=== PATIENT | male | born 1970 | race Caucasian/White ===

== ENCOUNTER 2022-11-26 22:36 | Emergency (ER) | payer SELFPAY ==
[~2022-11-26] VITALS: Ht 180.3 cm; Wt 90.7 kg
[~2022-11-26 22:36] MED LIST: HYDROCODONE BIT1 T11 PO; Orphenadrine C100 MG PO; PROTONIX40 MG PO; VICODIN 5/500 505 MG PO
[2022-11-26 23:19] LABS: BASO # 0.1 10*3/uL (0.0-0.1); BASO % 0.3 % (0.0-1.0); EOS % 0.1 % (1.0-4.0); HEMATOCRIT 49.8 % (42.0-52.0); LYMPH # 1.5 10*3/uL (1.3-4.4); LYMPH % 7.6 % (27.0-41.0); MEAN CELL VOLUME 84.3 fl (80.0-94.0); MEAN CORPUSCULAR HGB 28.4 pg (27.0-31.0); MEAN CORPUSCULAR HGB CONC 33.7 g/dl (33.0-37.0); MEAN PLATELET VOLUME 10.1 fl (9.6-12.3); NEUT # 16.6 10*3/uL (2.3-7.9); NEUT % 86.6 % (47.0-73.0); PLATELET COUNT AUTOMATED 294 10*3/uL (130-400); RED BLOOD COUNT 5.91 10*6/uL (4.50-5.90); RED CELL DISTRI WIDTH 13.2 % (0-14.5); WHITE BLOOD COUNT 19.2 10*3/uL (4.8-10.8)
[2022-11-26 23:31] LABS: ACT PARTIAL THROMBO TIME 32.5 SECONDS (20.0-32.1)
[2022-11-26 23:45] LABS: ALKALINE PHOSPHATASE 104 U/L (46-116); BUN 10 mg/dl (9-23); CHLORIDE 106 mmol/L (98-107); LIPASE 33 U/L (12-53); POTASSIUM 4.1 mmol/L (3.4-5.1); SGPT/ALT 36 U/L (10-49)
[2022-11-27 01:29] LABS: BILIRUBIN Negative (Negative); BLOOD 3+ (Negative); CLARITY Clear (Clear); COLOR Yellow (Yellow); GLUCOSE Negative (Negative); KETONE 2+ (Negative); LEUKO ESTERASE Negative (Negative); NITRITE Negative (Negative); SPECIFIC GRAVITY >= 1.030 (1.001-1.030); UROBILINOGEN 0.2 E.U./dl (0.0-1.0)
[2022-11-27 01:38] LABS: RBC 21-30 rbc/hpf (0-2)
[2022-11-27 01:39] LABS: MUCOUS 1+
== END 2022-11-27 02:34 | disposition short-term general hospital (02) ==
LOC: ED 22:36
PROVIDERS: Internal Medicine
DX: N20.0 Calculus of kidney (principal); I25.2 Old myocardial infarction; I10 Essential (primary) hypertension; E78.00 Pure hypercholesterolemia, unspecified; I25.10 Atherosclerotic heart disease of native coronary artery without angina pectoris